=== PATIENT | female | born 1990 | race Caucasian/White ===

== ENCOUNTER 2018-08-11 12:46 | Emergency (ER) | payer OTHER, MEDICAID, SELFPAY ==
[2018-08-11 13:07] VITALS: BP 121/93; PULSE 88; RESP 16; TEMP 37.2; O2SAT 95; BMI 27.1
--- NOTE | 2018-08-11 13:09 | ED.URI ---
HPI - URI/Sore Throat <MAGDALENO Vergara - Last Filed: 08/11/18 21:50> General Chief Complaint: Upper Respiratory Symptoms Stated Complaint: trouble breathing,fever,sick Time Seen by Provider: 08/11/18 12:49 Source: patient Mode of arrival: ambulatory Limitations: no limitations History of Present Illness HPI Narrative: 28-year-old female with history of asthma and is a smoker here for complaint of cold-like symptoms with nasal congestion and cough over the past week. She reports that she has had increased wheezing over the past week as well due to the cold like symptoms. She states she may have had a fever last night although she did not check. She denies productive cough. She has been using her albuterol to help with her wheezing. She has tolerated p.o. intake. No nausea vomiting. She denies any other concerns or complaints. Related Data Home Medications Medication Instructions Recorded Confirmed albuterol sulfate 1 puff INHALATION Q4-6H PRN 08/11/18 08/11/18 Previous Rx's Medication Instructions Recorded albuterol sulfate 2 inhalation INHALATION Q4-6H PRN 08/11/18 #8 gram albuterol sulfate 2.5 mg INHALATION QID PRN #75 ml 08/11/18 prednisone 40 mg PO DAILY #10 tab 08/11/18 Allergies Allergy/AdvReac Type Severity Reaction Status Date / Time From VICODIN Allergy Unknown SEVERE N/V Uncoded 10/20/17 11:52 Review of Systems <MAGDALENO Vergara - Last Filed: 08/11/18 21:50> Constitutional Reports chills, Reports fever(s), Denies lethargy and Denies weakness Eyes Denies change in vision, Denies eye discharge, Denies irritation and Denies loss of vision ENT Ears, Nose, Mouth, and Throat: Reports nasal discharge Cardiovascular Denies chest pain, Denies irregular heart rhythm, Denies lightheadedness, Denies palpitations and Denies orthopnea Respiratory Reports cough and Reports wheezing Gastrointestinal Gastrointestinal: Denies abdominal pain, Denies change in bowel habits, Denies diarrhea, Denies nausea and Denies vomiting Genitourinary Denies hematuria, Denies flank pain, Denies urinary incontinence and Denies urinary urgency Musculoskeletal Denies back pain, Denies muscle weakness, Denies numbness and Denies tingling Integumentary/Breasts Denies pruritus, Denies erythema, Denies rash and Denies wounds Neurologic Denies confusion, Denies loss of vision, Denies numbness, Denies tingling and Denies weakness Psychiatric Denies anxiety, Denies confusion, Denies depression, Denies homicidal ideation and Denies suicidal ideation Endocrine Denies palpitations Hematologic/Lymphatic Denies easy bruising Allergic/Immunologic Reports wheezing Exam <MAGDALENO Vergara - Last Filed: 08/11/18 21:50> Initial Vital Signs Initial Vital Signs: Vital Signs Temperature 99.0 F 08/11/18 13:07 Pulse Rate 88 08/11/18 13:07 Respiratory Rate 16 08/11/18 13:07 Blood Pressure 121/93 H 08/11/18 13:07 Pulse Oximetry 95 08/11/18 13:07 Const General: cooperative and well developed Nutritional Appearance: well nourished Orientation: alert, awake, oriented x3 and not confused HENMT Mouth: oral mucosae normal and moist mucous membranes Throat: posterior oropharynx normal Eyes Conjunctivae: conjunctivae normal Sclera: sclerae normal Pupils: PERRL EOM: EOM intact bilaterally Resp Effort & Inspection: normal respiratory effort, able to speak in complete sentences, no respiratory distress and no use of accessory muscles Auscultation: clear to auscultation bilaterally, no rales, no rhonchi and wheezes expiratory wheezes and upper bilaterally Cardio Rate: regular rate Rhythm: regular rhythm Heart Sounds: no click, no gallops, no murmurs and no rubs Pulses: normal peripheral pulses Skin General: no rashes or lesions noted, No jaundice and No petechiae Neuro General: alert, oriented x3, gait normal and no focal motor deficits Speech: speech normal <Kenyatta Carreno DO - Last Filed: 08/15/18 18:56> Initial Vital Signs Initial Vital Signs: Vital Signs Temperature 99.0 F 08/11/18 13:07 Pulse Rate 88 08/11/18 13:07 Respiratory Rate 16 08/11/18 13:07 Blood Pressure 121/93 H 08/11/18 13:07 Pulse Oximetry 95 08/11/18 13:07 Course <MAGDALENO Vergara - Last Filed: 08/11/18 21:50> Orders Ordered: Discontinued Medications Albuterol (Ventolin) 2.5 mg INH NOW PRN PRN Reason: Shortness Of Breath Or Wheezing Last Admin: 08/11/18 13:51 Dose: 2.5 mg Albuterol/Ipratropium (Duoneb) 3 ml INH NOW ONE Stop: 08/11/18 13:22 Last Admin: 08/11/18 13:38 Dose: 3 ml Vital Signs - 8 hr 08/11/18 13:54 08/11/18 14:11 Pulse Rate 89 82 Respiratory Rate 17 18 Blood Pressure [Left Arm] 126/81 Pulse Oximetry 100 96 <Kenyatta Carreno DO - Last Filed: 08/15/18 18:56> Orders Ordered: Discontinued Medications Albuterol (Ventolin) 2.5 mg INH NOW PRN PRN Reason: Shortness Of Breath Or Wheezing Last Admin: 08/11/18 13:51 Dose: 2.5 mg Albuterol/Ipratropium (Duoneb) 3 ml INH NOW ONE Stop: 08/11/18 13:22 Last Admin: 08/11/18 13:38 Dose: 3 ml Vital Signs - 8 hr 08/11/18 13:54 08/11/18 14:11 Pulse Rate 89 82 Respiratory Rate 17 18 Blood Pressure [Left Arm] 126/81 Pulse Oximetry 100 96 MDM - URI/Sore Throat <MAGDALENO Vergara - Last Filed: 08/11/18 21:50> Lab Data Lab Results 08/11/18 Range/Units 13:35 Influenza A & B (PCR) Negative (Negative) Imaging Data Chest x-ray: Radiologist's impression: [address] [address] XRay Report Signed Patient: Rivka Stevenson#: [id number] : 1990Acct:[id number] Age/Sex: 28 / FDate of Service: 08/11/18 Loc: ED Accession Number: [id number] Procedure: XR chest 2V Ordering Provider: Edward Ordonez PROCEDURE: XR CHEST 2V INDICATIONS: Cough and fever for 1 week TECHNIQUE: 2 views of the chest were acquired. COMPARISON: [facility], CR, CHEST 2VW, 10/06/2014, 14:17. [facility], CR, CHEST 1VW, 10/06/2014, 15:25. FINDINGS: Surgical changes and devices: None. Lungs and pleura: Lungs are clear. No pleural effusions or pneumothorax. Mediastinum: Mediastinal contours are normal. Heart size is normal. Bones and chest wall: No suspicious bony abnormalities. Soft tissues appear unremarkable. IMPRESSION: No active cardiopulmonary disease. Dictated by: Teo Durant M.D. on 08/11/2018 at 14:01 Approved by: Teo Durant M.D. on 08/11/2018 at 14:01 [facility] Narrative Medical decision making narrative: Chest x-ray was obtained was negative for any acute findings. Influenza swab was obtained and was negative. She was given a DuoNeb treatment and albuterol treatment in the emergency room which helped with her wheezing. Signs and symptoms presents as a viral upper respiratory infection with subsequent asthma exacerbation. She is prescribed a short course of prednisone to help with exacerbation. Albuterol as prescribed. Follow up with primary care provider return emergency room for worsening symptoms. <Kenyatta Carreno DO - Last Filed: 08/15/18 18:56> Lab Data Lab Results 08/11/18 Range/Units 13:35 Influenza A & B (PCR) Negative (Negative) Discharge Plan Departure Patient Disposition: Home Clinical Impression: Upper respiratory infection, Asthma exacerbation Discharge Date/Time: 08/11/18 14:19 Interventions: ED Discharge Assessment Last Done: 08/11/18 14:18 Instructions: DI for Asthma -- Adult Activity Restrictions/Additional Instructions: Chest x-ray was obtained was negative for any acute findings. Influenza swab was obtained and was negative. She was given a DuoNeb treatment and albuterol treatment in the emergency room which helped with her wheezing. Signs and symptoms presents as a viral upper respiratory infection with subsequent asthma exacerbation. You are prescribed a short course of prednisone to help with exacerbation. Albuterol as prescribed. Follow up with primary care provider return emergency room for worsening symptoms. Prescriptions were sent to [facility]. Prescriptions: New albuterol sulfate 2.5 mg /3 mL (0.083 %) solution for nebulization 2.5 mg INHALATION QID PRN (Reason: shortness of breath or wheezing) Qty: 75 RF: 0 prednisone 20 mg tablet 40 mg PO DAILY Qty: 10 RF: 0 albuterol sulfate 90 mcg/actuation HFA aerosol inhaler 2 inhalation INHALATION Q4-6H PRN (Reason: shortness of breath or wheezing) Qty: 8 RF: 0 No Action albuterol sulfate 90 mcg/actuation Hfa Aerosol Inhaler 1 puff INHALATION Q4-6H PRN (Reason: Shortness Of Breath) RF: 0 Referrals: [facility] [Provider Group] <Kenyatta Carreno DO - Last Filed: 08/15/18 18:56> Cosign ED Attending Darian Attestation: I was immediately available in the department for consultation. Documentation has been reviewed. I agree with assessment and plan.
--- NOTE | 2018-08-11 13:15 | ED_ITS ---
HPI - URI/Sore Throat <MAGDALENO Vergara - Last Filed: 08/11/18 21:50> General Chief Complaint: Upper Respiratory Symptoms Stated Complaint: trouble breathing,fever,sick Time Seen by Provider: 08/11/18 12:49 Source: patient Mode of arrival: ambulatory Limitations: no limitations History of Present Illness HPI Narrative: 28-year-old female with history of asthma and is a smoker here for complaint of cold-like symptoms with nasal congestion and cough over the past week. She reports that she has had increased wheezing over the past week as well due to the cold like symptoms. She states she may have had a fever last night although she did not check. She denies productive cough. She has been using her albuterol to help with her wheezing. She has tolerated p.o. intake. No nausea vomiting. She denies any other concerns or complaints. Related Data Home Medications Medication Instructions Recorded Confirmed albuterol sulfate 1 puff INHALATION Q4-6H PRN 08/11/18 08/11/18 Previous Rx's Medication Instructions Recorded albuterol sulfate 2 inhalation INHALATION Q4-6H PRN 08/11/18 #8 gram albuterol sulfate 2.5 mg INHALATION QID PRN #75 ml 08/11/18 prednisone 40 mg PO DAILY #10 tab 08/11/18 Allergies Allergy/AdvReac Type Severity Reaction Status Date / Time From VICODIN Allergy Unknown SEVERE N/V Uncoded 10/20/17 11:52 Review of Systems <MAGDALENO Vergara - Last Filed: 08/11/18 21:50> Constitutional Reports chills, Reports fever(s), Denies lethargy and Denies weakness Eyes Denies change in vision, Denies eye discharge, Denies irritation and Denies loss of vision ENT Ears, Nose, Mouth, and Throat: Reports nasal discharge Cardiovascular Denies chest pain, Denies irregular heart rhythm, Denies lightheadedness, Denies palpitations and Denies orthopnea Respiratory Reports cough and Reports wheezing Gastrointestinal Gastrointestinal: Denies abdominal pain, Denies change in bowel habits, Denies diarrhea, Denies nausea and Denies vomiting Genitourinary Denies hematuria, Denies flank pain, Denies urinary incontinence and Denies urinary urgency Musculoskeletal Denies back pain, Denies muscle weakness, Denies numbness and Denies tingling Integumentary/Breasts Denies pruritus, Denies erythema, Denies rash and Denies wounds Neurologic Denies confusion, Denies loss of vision, Denies numbness, Denies tingling and Denies weakness Psychiatric Denies anxiety, Denies confusion, Denies depression, Denies homicidal ideation and Denies suicidal ideation Endocrine Denies palpitations Hematologic/Lymphatic Denies easy bruising Allergic/Immunologic Reports wheezing Exam <MAGDALENO Vergara - Last Filed: 08/11/18 21:50> Initial Vital Signs Initial Vital Signs: Vital Signs Temperature 99.0 F 08/11/18 13:07 Pulse Rate 88 08/11/18 13:07 Respiratory Rate 16 08/11/18 13:07 Blood Pressure 121/93 H 08/11/18 13:07 Pulse Oximetry 95 08/11/18 13:07 Const General: cooperative and well developed Nutritional Appearance: well nourished Orientation: alert, awake, oriented x3 and not confused HENMT Mouth: oral mucosae normal and moist mucous membranes Throat: posterior oropharynx normal Eyes Conjunctivae: conjunctivae normal Sclera: sclerae normal Pupils: PERRL EOM: EOM intact bilaterally Resp Effort & Inspection: normal respiratory effort, able to speak in complete sentences, no respiratory distress and no use of accessory muscles Auscultation: clear to auscultation bilaterally, no rales, no rhonchi and wheezes expiratory wheezes and upper bilaterally Cardio Rate: regular rate Rhythm: regular rhythm Heart Sounds: no click, no gallops, no murmurs and no rubs Pulses: normal peripheral pulses Skin General: no rashes or lesions noted, No jaundice and No petechiae Neuro General: alert, oriented x3, gait normal and no focal motor deficits Speech: speech normal <Kenyatta Carreno DO - Last Filed: 08/15/18 18:56> Initial Vital Signs Initial Vital Signs: Vital Signs Temperature 99.0 F 08/11/18 13:07 Pulse Rate 88 08/11/18 13:07 Respiratory Rate 16 08/11/18 13:07 Blood Pressure 121/93 H 08/11/18 13:07 Pulse Oximetry 95 08/11/18 13:07 Course <MAGDALENO Vergara - Last Filed: 08/11/18 21:50> Orders Ordered: Discontinued Medications Albuterol (Ventolin) 2.5 mg INH NOW PRN PRN Reason: Shortness Of Breath Or Wheezing Last Admin: 08/11/18 13:51 Dose: 2.5 mg Albuterol/Ipratropium (Duoneb) 3 ml INH NOW ONE Stop: 08/11/18 13:22 Last Admin: 08/11/18 13:38 Dose: 3 ml Vital Signs - 8 hr 08/11/18 13:54 08/11/18 14:11 Pulse Rate 89 82 Respiratory Rate 17 18 Blood Pressure [Left Arm] 126/81 Pulse Oximetry 100 96 <Kenyatta Carreno DO - Last Filed: 08/15/18 18:56> Orders Ordered: Discontinued Medications Albuterol (Ventolin) 2.5 mg INH NOW PRN PRN Reason: Shortness Of Breath Or Wheezing Last Admin: 08/11/18 13:51 Dose: 2.5 mg Albuterol/Ipratropium (Duoneb) 3 ml INH NOW ONE Stop: 08/11/18 13:22 Last Admin: 08/11/18 13:38 Dose: 3 ml Vital Signs - 8 hr 08/11/18 13:54 08/11/18 14:11 Pulse Rate 89 82 Respiratory Rate 17 18 Blood Pressure [Left Arm] 126/81 Pulse Oximetry 100 96 MDM - URI/Sore Throat <MAGDALENO Vergara - Last Filed: 08/11/18 21:50> Lab Data Lab Results 08/11/18 Range/Units 13:35 Influenza A & B (PCR) Negative (Negative) Imaging Data Chest x-ray: Radiologist's impression: [address] [address] XRay Report Signed Patient: Rivka Stevenson#: [id number] : 1990Acct:[id number] Age/Sex: 28 / FDate of Service: 08/11/18 Loc: ED Accession Number: [id number] Procedure: XR chest 2V Ordering Provider: Edward Ordonez PROCEDURE: XR CHEST 2V INDICATIONS: Cough and fever for 1 week TECHNIQUE: 2 views of the chest were acquired. COMPARISON: [facility], CR, CHEST 2VW, 10/06/2014, 14:17. [facility], CR, CHEST 1VW, 10/06/2014, 15:25. FINDINGS: Surgical changes and devices: None. Lungs and pleura: Lungs are clear. No pleural effusions or pneumothorax. Mediastinum: Mediastinal contours are normal. Heart size is normal. Bones and chest wall: No suspicious bony abnormalities. Soft tissues appear unremarkable. IMPRESSION: No active cardiopulmonary disease. Dictated by: Teo Durant M.D. on 08/11/2018 at 14:01 Approved by: Teo Durant M.D. on 08/11/2018 at 14:01 [facility] Narrative Medical decision making narrative: Chest x-ray was obtained was negative for any acute findings. Influenza swab was obtained and was negative. She was given a DuoNeb treatment and albuterol treatment in the emergency room which helped with her wheezing. Signs and symptoms presents as a viral upper respiratory infection with subsequent asthma exacerbation. She is prescribed a short course of prednisone to help with exacerbation. Albuterol as prescribed. Follow up with primary care provider return emergency room for worsening symptoms. <Kenyatta Carreno DO - Last Filed: 08/15/18 18:56> Lab Data Lab Results 08/11/18 Range/Units 13:35 Influenza A & B (PCR) Negative (Negative) Discharge Plan Departure Patient Disposition: Home Clinical Impression: Upper respiratory infection, Asthma exacerbation Discharge Date/Time: 08/11/18 14:19 Interventions: ED Discharge Assessment Last Done: 08/11/18 14:18 Instructions: DI for Asthma -- Adult Activity Restrictions/Additional Instructions: Chest x-ray was obtained was negative for any acute findings. Influenza swab was obtained and was negative. She was given a DuoNeb treatment and albuterol treatment in the emergency room which helped with her wheezing. Signs and symptoms presents as a viral upper respiratory infection with subsequent asthma exacerbation. You are prescribed a short course of prednisone to help with exacerbation. Albuterol as prescribed. Follow up with primary care provider return emergency room for worsening symptoms. Prescriptions were sent to [facility]. Prescriptions: New albuterol sulfate 2.5 mg /3 mL (0.083 %) solution for nebulization 2.5 mg INHALATION QID PRN (Reason: shortness of breath or wheezing) Qty: 75 RF: 0 prednisone 20 mg tablet 40 mg PO DAILY Qty: 10 RF: 0 albuterol sulfate 90 mcg/actuation HFA aerosol inhaler 2 inhalation INHALATION Q4-6H PRN (Reason: shortness of breath or wheezing) Qty: 8 RF: 0 No Action albuterol sulfate 90 mcg/actuation Hfa Aerosol Inhaler 1 puff INHALATION Q4-6H PRN (Reason: Shortness Of Breath) RF: 0 Referrals: [facility] [Provider Group] <Kenyatta Carreno DO - Last Filed: 08/15/18 18:56> Cosign ED Attending Darian Attestation: I was immediately available in the department for consultation. Documentation has been reviewed. I agree with assessment and plan.
--- NOTE | 2018-08-11 13:21 | DI.RAD.S_ITS ---
PROCEDURE: XR CHEST 2V INDICATIONS: Cough and fever for 1 week TECHNIQUE: 2 views of the chest were acquired. COMPARISON: [facility], CR, CHEST 2VW, 10/06/2014, 14:17. [facility], CR, CHEST 1VW, 10/06/2014, 15:25. FINDINGS: Surgical changes and devices: None. Lungs and pleura: Lungs are clear. No pleural effusions or pneumothorax. Mediastinum: Mediastinal contours are normal. Heart size is normal. Bones and chest wall: No suspicious bony abnormalities. Soft tissues appear unremarkable. IMPRESSION: No active cardiopulmonary disease. Dictated by: Teo Durant M.D. on 08/11/2018 at 14:01 Approved by: Teo Durant M.D. on 08/11/2018 at 14:01
[2018-08-11 13:38] VITALS: PULSE 94; RESP 18; O2SAT 95
[2018-08-11] MEDS: ALBUTEROL/IPRATROPIUM 3 ML AMPUL INH (13:38)
[2018-08-11] MEDS: ALBUTEROL 2.5 MG/3 ML NEB (ADULT) INH (13:51)
[2018-08-11 13:54] VITALS: PULSE 89; RESP 17; O2SAT 100
[2018-08-11 13:54] LABS: Influenza A and B by PCR Rapid Negative (Negative)
[2018-08-11 14:11] VITALS: BP 126/81; PULSE 82; RESP 18; O2SAT 96
== END 2018-08-11 14:19 | disposition home or self-care (01) ==
PROVIDERS: Emergency Provider Nurse Practitioner Family
DX: J45.901 Unspecified asthma with (acute) exacerbation (principal)
CPT/HCPCS: 71046; 87400; 94640; 99282; 99284; J7613